=== PATIENT | male | born 1950 | race Caucasian/White ===

== ENCOUNTER 2018-09-13 00:35 | Inpatient (IN) | payer OTHER ==
[~2018-09-13] VITALS: Ht 157.5 cm; Wt 72.6 kg
[~2018-09-13 00:35] MED LIST: ACCUNEB0.63 MG/3; ACETAMINOPHEN325 M1; AKWA TEARS EYE15 ML; ASPIRIN EC81 M1 PO; BISACODYL SUPP10 MG; BISMATROL262 MG/15; CELEXA 20 MG TA20 M1 PO; CIPROFLOXACIN500 M1 PO; COLACE100 MG PO; DULCOLAX5 MG PO; GLYCOLAX POWDER17 G1 PO; HYDROCORTISONE30 G9; LOPERAMIDE 2 MG2 M1; LORTAB 5-500 T1 EAC1 PO; MIRALAX255 GM PO; PACERONE 200 M200 M1 PO; REMERON15 MG PO; ROBITUSSIN COU118 ML PO; ROBITUSSIN DM118 ML; TRAMADOL 50 MG50 MG PO; TRIAMCINOLONE 080 G3; TUCKS HEMORROID30 GM; ZOFRAN ODT4 MG PO
--- NOTE | 2018-09-13 00:59 | NUR ---
PER REPORT--PT CATATONIC AT BASELINE. PT HAS BEEN HAVING ELEVATED NA, FACILITY UNABLE TO OBTAIN LINE, SO SENT TO THIS FACILITY.
[2018-09-13 01:34] LABS: ABSOLUTE NEUTROPHILS 5.5 thou/uL (1.4-8.2); BASOPHILS 0.8 % (0.0-2.0); EOSINOPHILS 1.6 % (0.0-3.0); HEMATOCRIT 34.9 % (42.0-52.0); HEMOGLOBIN 11.3 gm/dL (14.0-18.0); LYMPHOCYTES 28.9 % (24.0-44.0); MCH 27.6 pg (26.0-34.0); MCHC 32.4 g/dL (28.0-37.0); PLATELET COUNT 398 thou/uL (150-400); POLYS 64.7 % (36.0-66.0); RBC 4.11 mil/uL (4.50-6.00); RDW 15.7 % (10.5-14.5); WBC 8.5 thou/uL (4.0-11.0)
[2018-09-13 01:42] LABS: CALCIUM 8.6 mg/dL (8.5-10.1); CREATININE 0.8 mg/dL (0.7-1.3); POTASSIUM 3.9 mmol/L (3.5-5.1)
[2018-09-13 02:32] LABS: URINE BILIRUBIN NEGATIVE (Negative); URINE BLOOD NEGATIVE (Negative); URINE CLARITY CLEAR; URINE COLOR YELLOW; URINE GLUCOSE-RANDOM* NEGATIVE (Negative); URINE KETONES TRACE (Negative); URINE LEUKOCYTES-REFLEX NEGATIVE (Negative); URINE NITRITE-REFLEX NEGATIVE (Negative); URINE PROTEIN (DIPSTICK) TRACE (Negative); URINE SPECIFIC GRAVITY 1.025 (1.005-1.035); URINE UROBILINOGEN 0.2 E.U./dl (0.2-1.0)
[2018-09-13 03:37] LABS: URINE CREATININE-RANDOM* 136.5 mg/dL
[2018-09-13 05:50] VITALS: BP 110/56
[2018-09-13 06:35] VITALS: BP 105/63
[2018-09-13 09:18] LABS: CALCIUM 8.5 mg/dL (8.5-10.1); CREATININE 0.8 mg/dL (0.7-1.3); POTASSIUM 3.5 mmol/L (3.5-5.1)
[2018-09-13] MEDS ORDERED: ELIQUIS5 MG PO (11:01)
[2018-09-13] MEDS ORDERED: LIDODERM1 EACH TRANSDERM (11:02)
[2018-09-13] MEDS ORDERED: ARTIFICIAL TEAR15 M1 OPHTHALMIC (11:02)
[2018-09-13] MEDS ORDERED: KEPPRA 500 MG500 M1 PO (11:02)
[2018-09-13] MEDS ORDERED: LOPRESSOR25 PO (11:03)
[2018-09-13] MEDS ORDERED: UNICOMPLEX M TA1 TA1 PO (11:03)
[2018-09-13] MEDS ORDERED: VITAMIN C500 M1 PO (11:04)
[2018-09-13] MEDS ORDERED: SKIN PROTECTAN113 GM TOP (11:06)
[2018-09-13 11:22] VITALS: BP 108/64
--- NOTE | 2018-09-13 13:58 | NUR ---
Discharge Planning: dp sent initial skilled referral to [facility], also contacted Rafy/admissions [facility] and let him know of referral.
[2018-09-13 16:24] VITALS: BP 107/58
--- NOTE | 2018-09-13 16:25 | NUR ---
INITIAL ASSESSMENT: KATHI reviewed chart and spoke with nursing and attending physician. Pt was admitted from [facility] due to hypernatremia. Pt receiving IV fluids. Pt with hx of MR and CP. Pt is normally w/c bound and total care. KATHI spoke with pt's sister/legal guardian, Jennifer and nephew, Mitchell, via phone. Introduced role of KATHI. Pt has been at [facility] for about two months. Pt started out as skilled and then transitioned to LTC. Plan is for pt to return to [facility] when medically stable. Pt was living in a usp until recently. personal financial planner faxed clinical info to [facility] for review. KATHI is following to assist as needed with discharge planning.
--- NOTE | 2018-09-13 18:30 | NUR ---
PATIENT ALERT AT TIMES AND AND WILL MAKE GROANING NOISE BUT DOES NOT VERBALIZE HOWEVER WILL TRACK CARE PROVIDERS WITH EYES. PATIENT WILL REACH AND GRAB BED RAIL. CONTACTED [facility] FOR ADDITIONAL RECORDS AND PATIENT DIET BUT WAS UNABLE TO MAKE CONTACT. DR ORDONEZ CONSULTED AND WOUND CARE CONSULTED. WILL CONTINUE WITH CARE PLAN.
[2018-09-13 19:46] VITALS: BP 101/54
[2018-09-14] VITALS (12 sets, daily range): BP systolic 118–153; BP diastolic 70–84
[2018-09-14 06:10] LABS: ALBUMIN 1.9 g/dL (3.4-5.0); CALCIUM 7.6 mg/dL (8.5-10.1); CREATININE 0.6 mg/dL (0.7-1.3); PHOSPHORUS 2.6 mg/dL (2.5-4.9); POTASSIUM 3.1 mmol/L (3.5-5.1)
--- NOTE | 2018-09-14 11:58 | NUR ---
KATHI reviewed chart and spoke with nursing and attending physician. Pt may need peg tube. KATHI provided physician with contact number for pt's sister/legal guardian. Awaiting input from family. KATHI is following to assist as needed with discharge planning.
--- NOTE | 2018-09-14 14:15 | NUR ---
Nutrition: pt noted to have pressure wound on coccyx, not staged yet. Pt w/ hx of CP and severe mental retardation. No wt hx per chart. Na 151, K+ 3.1, Cl 115, albumin 1.9. D5 and other meds reviewed. CIRCLE SAW OPERATOR consulted for swallow eval. Pt is non-verbal, unable to accurately assess risk at this time; failed swallow eval could put pt at mod-high nutrition risk. RD follow up on or before 09/16.
--- NOTE | 2018-09-14 20:12 | NUR ---
PATIENT ALERT AND MOANS AND FOLLOWS 1 STEP COMMANDS AND UNDERSTANDS IF SPEAKING CLEARLY AND SLOWLY PER DPOA AND SISTER. SISTER STATES PATIENT EATING POORLY PRIOR TO ADMIT AND CONCERNED ABOUT CARE AT FACILITY. ENCOURAGED SISTER TO SPEAK WITH CM AND GAVE PHONE # OF CM. PATIENT ON DIET. SIT UP IN BED AND TOTAL ASSIST TO FEED. GOOD APPETITE AND PATIENT INDICATED FULL, BY STATING, "FULL".
[2018-09-15] VITALS: BP 127/68
[2018-09-15 04:10] VITALS: BP 119/68
[2018-09-15 05:33] LABS: ALBUMIN 1.9 g/dL (3.4-5.0); CALCIUM 7.7 mg/dL (8.5-10.1); CREATININE 0.6 mg/dL (0.7-1.3); PHOSPHORUS 3.1 mg/dL (2.5-4.9); POTASSIUM 3.8 mmol/L (3.5-5.1)
--- NOTE | 2018-09-15 06:12 | NUR ---
PATIENT IS PROGRESSING IN CARE PLAN. VITAL SIGNS STABLE WITH NURSE NOT PERCEIVING ANY PAIN OR NAUSEA ON BEHALF OF PATIENT. PATIENT IS ORIENTED TO SELF AT BEST, AND IS UNABLE TO COMMUNICATE NEEDS EFFECTIVELY. WOUND CARE PROVIDED PER DOCTOR ORDER. SWALLOW PRECAUTIONS FOLLOWED. PATIENT WAS TURNED FREQUENTLY WITH SKIN CARE PROVIDED. CONTINUE PLAN OF CARE.
[2018-09-15 07:59] VITALS: BP 109/73
[2018-09-15 11:07] VITALS: BP 103/72
--- NOTE | 2018-09-15 13:17 | NUR ---
KATHI reviewed chart and spoke with attending physician. Pt's legal guardian is in agreement with peg tube placement in IR tomorrow. Plan is for pt to return to [facility] when medically stable. farm planner to fax updates to [facility] for review. KATHI is following to assist as needed with discharge planning.
--- NOTE | 2018-09-15 13:31 | NUR ---
DISCHARGE PLANNING. PATIENT IS [facility] AT [facility]. PLAN IS FOR PATIENT TO RETURN TO HIS [facility] ONCE MEDICALLY READY. PEG TUBE PLACEMENT SCHEDULED FOR TOMORROW. CLINICAL INFORMATION [facility]ED TO [facility]. CALL PLACED TO [facility] TO NOTIFY. FOLLOWING TO ASSIST WITH DISCHARGE.
[2018-09-15 15:19] VITALS: BP 104/71
[2018-09-15 19:19] VITALS: BP 101/63
--- NOTE | 2018-09-15 19:59 | NUR ---
This AM, patient was not swallowing meal, even with prompting. Speech evaluated patient and agreed that he needs alternative route of nutrition. Plan was for PEG tube placement tomorrow but the DPOA told this RN this evening when called for consent that she no longer wants the PEG tube placed as she has changed her mind. The DPOA said she wants to come up tomorrow for breakfast and try to feed patient herself. DPOA made aware of why PEG tube procedure was important. DPOA also made aware that patient may remain NPO for aspiration risk and may not have a food tray tomorrow depending on doctor orders, DPOA said she understands. Not much progress toward plan of care at this time as patient isn't recieving adequate nutrition.
--- NOTE | 2018-09-15 21:00 | NUR ---
Patient awake, makes incomprehensible sounds. Attempted to give meds, pocketing applesauce. Kept NPO.
[2018-09-16 03:03] VITALS: BP 104/53
--- NOTE | 2018-09-16 04:17 | NUR ---
Patient not making progress towards outcome goals. Vital signs and rhythm stable. Kept NPO for risk of aspiration. IVFluids infusing. Good urine output. DPOA declining Peg placement at this time.
[2018-09-16 07:18] LABS: ALBUMIN 1.8 g/dL (3.4-5.0); CALCIUM 8.4 mg/dL (8.5-10.1); CREATININE 0.6 mg/dL (0.7-1.3); PHOSPHORUS 3.3 mg/dL (2.5-4.9); POTASSIUM 3.6 mmol/L (3.5-5.1)
[2018-09-16 08:14] VITALS: BP 106/68
--- NOTE | 2018-09-16 10:14 | NUR ---
WOUND CARE FOLLOW UP; ROUNDING WITH DR HAI HERNANDEZ AND MICHAEL GRAB JACK MAN. THE PATIENT IS SOUND ASLEEP DURING ASSESSMENT. FAMILY PRESENT TO GET ADDITIONAL INFORMATION. THE WOUNDS ARE STABLE AT THIS TIME AND BEING OFFLOADED APPROPRIATLY. CONTINUE CURRENT POC DISCUSSED WITH NATASHA
--- NOTE | 2018-09-16 10:31 | NUR ---
RN TALK TO PATIENT'S SISTER (DPOA) ANJELICA IN ROOM THAT SHE DOES NOT WANT PATIENT HAS PEG TUBE DUE TO PATIENT ABLE TO EAT AND IT IS PAINFUL TO HAVE PEG TUBE. INFO AND EDUCATION GIVEN AGIAN TO SISTER. SHE LIKES TALK TO PHYSICIAN.
--- NOTE | 2018-09-16 10:41 | NUR ---
Awaiting final decision for possible PEG
--- NOTE | 2018-09-16 10:50 | NUR ---
If decision to start tube feeding over the weekend, recommend jevity 1.5 to reach goal of 65ml/hr
--- NOTE | 2018-09-16 11:46 | NUR ---
SW reviewed chart and spoke with nursing and attending physician. Pt's sister changed her mind about the peg tube and is now agreeable with having peg tube placed. No weekend discharge planned, as pt will need to be started on tube feeding and tolerate it prior to discharge. Plan is for pt to rerturn to [facility] when medically stable. KATHI is following to assist as needed with discharge planning.
[2018-09-16 11:54] VITALS: BP 91/58
--- NOTE | 2018-09-16 12:03 | HC ---
[facility] [place] [address] CONSULTATION Name: KELLIE KU Room #: 359-P ADM IN M.R.#: [id number] Admission: 09/13/18 ������������������ Attend Phys: Vin Mancuso MD Discharge: ������������������ Date of : 48 Report #: [id number] THIS REPORT FOR: //name// CC: Cliff Mancuso DATE OF SERVICE: 09/13/2018 REASON FOR CONSULTATION: Dehydration. HISTORY OF PRESENT ILLNESS: This is a 68-year-old patient with cerebral palsy, mental retardation, has become less responsive, has stopped eating and drinking and presents with a serum sodium of 165. PAST MEDICAL HISTORY: Hypertension. He has atrial arrhythmias and a pacemaker, anemia and depression. Past history as listed include some mental retardation, which is severe. Cerebral palsy, prior history of C. diff and sepsis. He has had prior history of AFib with RVR. He has had previous colon surgery with partial colectomy. He reportedly has a pacemaker. MEDICATIONS: As listed from the facility include amiodarone 200 mg daily, aspirin 81 mg daily, Colace, Remeron 15 mg at bedtime, Celexa 20 mg daily, and hydrocodone p.r.n. REVIEW OF SYSTEMS: Cannot be taken. SOCIAL HISTORY: Lives at facility. PHYSICAL EXAMINATION: GENERAL: Very lethargic gentleman without a lot of responsiveness. SKIN: Shows slightly poor turgor. SKELETAL: Shows him to be in a position in bed. HEENT: Extraocular movements cannot be tested. No scleral icterus. Hearing and vision cannot be adequately tested. Mucous membranes are dry. NECK: Veins are flat. CHEST: Clear with shallow respirations. HEART: Distant, but regular. ABDOMEN: Soft and nontender. EXTREMITIES: Show no edema. NEUROLOGIC: He really is not following any commands. He does show a little bit of attentiveness to voice command. LABORATORY DATA: Sodium 165, potassium 3.5, chloride 128, bicarbonate 30, BUN 27, creatinine 0.8. ASSESSMENT: [facility] [address] [place] [address] CONSULTATION Name: KELLIE KU Room #: 359-P [facility] IN ..#: [id number] Admission: 09/13/18 ������������������ Attend Phys: Vin Mancuso MD Discharge: ������������������ Date of : 48 Report #: [id number] 1. Hypernatremia. He is severely dehydrated, currently not eating or drinking. IV free water will be given once we get his numbers better. I suspect, maybe, he will brighten up and be able to take p.o. again. 2. Cerebral palsy. 3. Mental retardation. 4. History of atrial arrhythmias. ��������������������������������������������� <ELECTRONICALLY SIGNED> ���������������������������������������� By: Wilfred Morfin MD ��������������������������������������������� 09/16/18 1203 [id number] [id number] Wilfred Morfin MD /nt
[2018-09-16 16:41] VITALS: BP 100/70
[2018-09-16 20:01] VITALS: BP 107/72
--- NOTE | 2018-09-16 22:13 | NUR ---
PROVIDER SERA AWARE OF THE NEED TO CHANGE MEDICATIONS TO IV DUE TO PATIENT BEING NPO. MOHAN.
[2018-09-17 04:25] VITALS: BP 111/69
[2018-09-17 05:43] LABS: ALBUMIN 1.8 g/dL (3.4-5.0); CALCIUM 8.1 mg/dL (8.5-10.1); CREATININE 0.6 mg/dL (0.7-1.3); PHOSPHORUS 3.1 mg/dL (2.5-4.9); POTASSIUM 3.1 mmol/L (3.5-5.1)
--- NOTE | 2018-09-17 05:46 | NUR ---
PAITNET IS AWAKE. PATIENT IS NONVERBAL OCCATIONALLY ANSWERS "YES" "NO" QUESTIONS. PATIENT SI Q2TURN. PATIENT WAS BATHED THIS SHIFT. PATIENT IS ON ROOM AIR. PATIENTS LBM WAS THE . PATIENTS DRESSINGS ARE CLEAN DRY AND INTACT. PATIENT HAS A GOLD. PATIENT IS SR WITH 1ST DEGREE ON TELE. PATIENT IS Q6H ACCUCHECK. PATIENT IS NPO. PATIENT LIVES AT [facility]. PATIENT IS PENDING POSSIBLE PEG TUBE ON WEDNESDAY. PATIENT RESTING COFMORTABLY IN BED. WCM. PATIENT IS NOT PROGRESSING TO GOALS.
[2018-09-17 07:30] VITALS: BP 100/62
--- NOTE | 2018-09-17 08:44 | NUR ---
PATIENT ALERT. SISTER BRAD IS IN PATIENT ROOM THAT BOUGHT FOOD FROM OUTSIDE FEEDING PATIENT. RN EXPLAIN TO HER PATIENT IS NPO ONLY SPEECH THERPIST ABLE TO FEEDING PATIENT CORRECTIONS IDENTIFICATION TECHNICIAN. SISITER AND OTHER STILL CONTINUE FEEDING PATIENT WITH THIN LIQUID. EDUCATION GIVEN TO SISITER AND OTHER FAMILY. ALSO PHYSICIAN NOIFIED.
[2018-09-17 11:18] VITALS: BP 107/65
[2018-09-17 16:27] VITALS: BP 111/66
[2018-09-17 19:40] VITALS: BP 109/74
--- NOTE | 2018-09-18 02:55 | NUR ---
PATIENT IS ALERT TO SELF, PATIENT IS CONFUSED. PATIENT WILL ANSWER "YES" "NO" QUESTIONS AND MAKE SMALL NEEDS KNOWN. PATIENT IS ON ROOM AIR. PENDING PEG TUBE PLACEMENT ON WEDNESDAY IN THE MEAN TIME NPO FOR ASPIRATION. PATEINT RECEIVING PPN FOR NUTRITION. DRESSINGS CHANGED, CLEAN, DRY AND INTACT. PATIENT IS Q2 TURN. PATIENT IS NSR ON TELE OCCATIONALLY V PACED, HAS A PACEMAKER. PATIENT IS Q6H ACCUCHECK DUE TO NPO STATUS. PATIENTS LBM WAS THE 29TH. PATIENT DENIES PAIN. PATIENT IS RESTING IN BED. WCM. PATIENT IS PROGRESSING TO GOALS.
[2018-09-18 04:00] VITALS: BP 103/61
[2018-09-18 06:04] LABS: CALCIUM 8.6 mg/dL (8.5-10.1); CREATININE 0.5 mg/dL (0.7-1.3); POTASSIUM 3.7 mmol/L (3.5-5.1)
[2018-09-18 07:13] VITALS: BP 120/78
[2018-09-18 11:28] VITALS: BP 109/65
--- NOTE | 2018-09-18 14:55 | NUR ---
pt's assessment has done, pt opens his eyes and he can follow some commands, pt is NPO and pt is continuing PPN @60ml/hr, pt is turn q2hr with assist, pt's VS are stable at this time, pt's wound care has done, pt is tolerative with wound care, pt will have PEG tube placement 09/19/18.
[2018-09-18 16:11] VITALS: BP 125/85
[2018-09-18 20:00] VITALS: BP 103/65
[2018-09-19 03:25] VITALS: BP 122/75
--- NOTE | 2018-09-19 03:51 | NUR ---
ASSUMED PT CARE AROUND 1900. MOSTLY NONVERBAL. NODS HEAD YES/NO TO QUESTIONS. PT SLEPT MOST OF THE NIGHT. Q2H TURN TO PREVENT FURTHER SKIN BREAKDOWN. REMAINS NPO. ORAL CARE PROVIDED. PPN INFUSING VIA IV. VSS. AFEBRILE. GOLD TO DD WITH GOOD URINE OUTPUT. FALL PRECAUTIONS IN PLACE. NOT PROGRESSING WELL TOWARD POC GOALS. WILL CONTINUE TO MONITOR FURTHER.
[2018-09-19 07:00] VITALS: BP 134/81
[2018-09-19 08:51] LABS: INR 1.1; PROTIME 11.4 Seconds (9.3-11.4)
[2018-09-19 11:32] VITALS: BP 124/81
--- NOTE | 2018-09-19 13:27 | NUR ---
WOUND CARE FOLLOW UP; ROUNDING WITH DR HAI CHRISTOPHER AND MICHAEL SCRAP CRANE OPERATOR. THE WOUNDS ARE UNCHANGED FROM PRIOR ASSESSMENT. PLAN; CONTINUEBOARDERED FOAM TO SACRUM AND BETADINE, ABD, KERLIX TO HEEL WOUND. DISCUSSED WITH NATASHA
--- NOTE | 2018-09-19 13:36 | HC ---
[facility] [place] [address] [place] [address] CONSULTATION Name: KELLIE KU Room #: 359-P ADM IN M.R.#: [id number] Admission: 09/13/18 ������������������ Attend Phys: Vin Mancuso MD Discharge: ������������������ Date of : 48 Report #: [id number] THIS REPORT FOR: //name// CC: Cliff Mancuso DATE OF SERVICE: 09/14/2018 WOUND CARE CONSULTATION PERSONAL PHYSICIAN: Vin Mancuso MD CHIEF COMPLAINT: Multiple decubitus ulcers. HISTORY OF PRESENT ILLNESS: This is a 68-year-old white male with history of severe mental retardation, cerebral palsy who currently resides in his long-term care facility, who came in the Emergency Department for a severely elevated sodium level. The patient was admitted because of the elevated sodium. Upon admission, the patient was found to have a stage 4 decubitus ulcer in the sacrococcygeal region as well as a deep tissue injury on his right heel as well as a stage 3 decubitus ulcer to the right buttock. The patient himself is nonverbal due to the cerebral palsy and severe mental retardation. The patient is unable to give any history whatsoever. There is no family at the bedside at this time. All information was obtained from the chart. It appears the patient is a long-term resident at this facility. He is unsure how long these ulcerations have been present. PAST MEDICAL HISTORY: Significant for severe mental retardation, gastroesophageal reflux disease, gout, depression, hypertension, cerebral palsy, AFib with rapid ventricular response. CURRENT MEDICATIONS: Multiple, I reviewed the patient's medication list. DRUG ALLERGIES: TUBERCULIN PPD. SOCIAL HISTORY: The patient resides in a care facility. FAMILY HISTORY: Not pertinent to current medical condition. REVIEW OF SYSTEMS: Unobtainable because of the patient's nonverbal state. PHYSICAL EXAMINATION: VITAL SIGNS: Temp 36.9, pulse 77, respirations 15, BP 106/68. GENERAL: This is awake, but not alert or oriented white male who appears chronically ill. HEENT: Normocephalic, atraumatic. Mucous membranes are dry. Pupils are round. [facility] [address] [place] [address] CONSULTATION Name: KUKELLIE FADI Room #: 359-P [facility] IN M.R.#: [id number] Admission: 09/13/18 ������������������ Attend Phys: Vin Mancuso MD Discharge: ������������������ Date of : 48 Report #: [id number] Sclerae are white. NECK: Supple, nontender, without JVD. LUNGS: Clear. HEART: Irregularly irregular. ABDOMEN: Soft, nontender. EXTREMITIES: The patient appears to have spontaneous movement, but it is limited. On the right heel is an intact hemorrhagic blister consistent with a deep tissue injury, which is boggy, but with no drainage. Rest of the foot and toes are without open ulcerations. The left heel is intact. Rest of the foot and toes are intact. Evaluation of sacrococcygeal region reveals a stage 4 decubitus ulcer, which is a mixture of approximately 80% slough and 20% pale pink granulation tissue. There is a moderate odor noted with serosanguineous drainage, but no actual purulence. There is no evidence of any exposed bony spicules. Periwound is mildly macerated, but otherwise intact, but no significant undermining or tunneling. Evaluation of the right buttock area reveals a clean, granulating stage 3 decubitus ulcer with serosanguineous drainage without odor. There is no undermining or tunneling. Periwound is mildly macerated. NEUROLOGIC: Cranial nerves 2 through 12 are grossly intact. The patient has fairly severe mental retardation. LABORATORY DATA: White count 8.5, hemoglobin 11.3. Albumin is 1.8. WOUND CARE COURSE: At this time, we will plan on ordering a CT scan with contrast to evaluate for possible underlying osteomyelitis as well as to make sure we have the patient in a low air loss mattress and turned every 2 hours. We will put heel protectors on at all times. We will make sure we maximize the patient's nutritional status through his PEG tube. We will start Dakin's wet to dry dressings until the coccyx changed daily and p.r.n. We will use a bordered foam to the right buttock, had this changed daily and p.r.n. On the right medial heel, we will use Betadine, ABD, Kerlix, tape and change daily and p.r.n. We can consult Occupational and Physical Therapy to see if they can possibly help at all; however, I am not sure if the patient is going to be able to participate in this. IMPRESSION: 1. Stage 4 sacrococcygeal decubitus ulcer present on admission. 2. Stage 3 decubitus ulcer to the right buttock present on admission. 3. Deep tissue into the right medial heel. 4. Severe mental retardation. 5. Cerebral palsy. 6. History of atrial fibrillation. 7. Hypertension. 8. Congestive heart failure. 9. Neuropathy. 10. Severe protein-calorie malnutrition with an albumin of 1.9. [address] [address] CONSULTATION Name: KELLIE KU Room #: 359-P ADM IN M.R.#: [id number] Admission: 09/13/18 ������������������ Attend Phys: Vin Mancuso MD Discharge: ������������������ Date of : 48 Report #: [id number] 11. Severe debility. PLAN: Described as above. We appreciate the ability to consult. ��������������������������������������������� <ELECTRONICALLY SIGNED> ���������������������������������������� By: Kimani Potter MD ��������������������������������������������� 09/19/18 1336 [id number] [id number] Kimani Potter MD /nt
--- NOTE | 2018-09-19 14:26 | NUR ---
Nutrition: When able to use PEG tube, REC jevity 1.5 to reach 65 mL/hr. When IVFS D/C, will need 200 mL H20 q 6 hrs flushes.
[2018-09-19 15:13] VITALS: BP 115/76
--- NOTE | 2018-09-19 15:43 | NUR ---
KATHI reviewed chart and spoke with nursing and attending physician. Pt to have peg tube placed today in IR. Plan is for pt to return to [facility] when medically stable. neighborhood planner to fax updates to [facility] for review. KATHI is following to assist as needed with discharge planning.
--- NOTE | 2018-09-19 16:51 | NUR ---
PT AWAKE BUT NONE VERBAL. VSS, 98%RA, SR ON TELE. PPN INFUSING PER ORDER. GOLD TO DD. WOUND CARE DONE. PT TURNED FREQUENTLY THIS SHIFT. PT FAMILY AT BEDSIDE THIS MORNING. WILL CONTINUE TO MONITOR.
[2018-09-19 19:51] VITALS: BP 105/61
--- NOTE | 2018-09-20 03:23 | NUR ---
ASSUMED PT CARE AROUND 1900. PT IS MOSTLY NONVERBAL, NODS HEAD YES/NO AND IS ABLE TO TRACK WITH HIS EYES. NO PAIN NOTED. PT SLEPT MOST OF THE NIGHT. RESP EVEN AND UNLABORED. REPOSITIONED FREQUENTLY TO PREVENT FURTHER SKIN BREAKDOWN. COCCYX DRESSING CHANGED PER ORDER. COMPLETE BED BATH GIVEN. ORAL CARE PROVIDED. PT NOW A DNR PER ORDER FROM DR MTZ. PPN D/C'D PER ORDER. ALLA TO UDAY. NOT PROGRESSING WELL TOWARD POC GOALS. WILL CONTINUE TO MONITOR CLOSELY.
[2018-09-20 03:58] VITALS: BP 137/88
[2018-09-20 07:24] VITALS: BP 103/65
--- NOTE | 2018-09-20 15:25 | NUR ---
DISCHARGE NOTE: KATHI reviewed chart and spoke with nursing and attending physician. Attending physician spoke with pt's sister/legal guardian yesterday. Peg tube will not be placed. Pt's sister has decided to initiate comfort care/hospice and for pt to return to [facility] with hospice. Pt is a DNR. Pt is stable for discharge today. KATHI spoke with pt's sister/guardian via phone to discuss discharge plan. Jennifer is aware and agreeable with discharge plan. Hospice agencies discussed. No preference voiced. Pt to return to [place] and have hospice initiated there. Awaiting final discharge orders at this time. KATHI arranged ambulance transportation for 1730 via [facility]. Pt's sister is aware of transportation time. Chart copy requested. Nursing to call report. KATHI updated [place] post-acute liaison of transportation time. KATHI is following to finalize discharge.
[2018-09-20] MEDS ORDERED: LORAZEPAM I2 MG/1 M2 SUBLING (15:32)
[2018-09-20] MEDS ORDERED: ACCUNEB SO1.25 MG/1 INH (15:32)
[2018-09-20] MEDS ORDERED: MSL20MG/ML SUBLING (15:32)
--- NOTE | 2018-09-20 17:52 | NUR ---
Patient discharged with ambulance drivers back to [facility]. Plan is for hospice. Patient left unit at 1750 on room air. IV and telemetry discontinued today. Discharge packet and new prescriptions given to EMS drivers. All patient belongings sent with patient. Report given to facility. Daily dressing changes on wounds completed this AM. 250 ml out of Krueger cath. IM Glucagon administered this afternoon for blood sugar of 63. Blood sugar came back up to 93. Dr. Amaya notified then blood sugar checks dc'd.
== END 2018-09-20 18:03 | DRG 640 ==
LOC: ER 00:35 → 3W 03:45 → EROBS 03:45 → 3W 06:36
PROVIDERS: Emergency Medicine; Internal Medicine; Internal Medicine Nephrology; Radiology Vascular & Interventional Radiology; ADMIT Hospitalist
DX: E86.0 Dehydration (principal); L89.154 Pressure ulcer of sacral region, stage 4; E43 Unspecified severe protein-calorie malnutrition; L89.313 Pressure ulcer of right buttock, stage 3; G93.40 Encephalopathy, unspecified; E87.0 Hyperosmolality and hypernatremia; K21.9 Gastro-esophageal reflux disease without esophagitis; M10.9 Gout, unspecified; F41.9 Anxiety disorder, unspecified; F32.9 Major depressive disorder, single episode, unspecified; E78.5 Hyperlipidemia, unspecified; M19.90 Unspecified osteoarthritis, unspecified site; K58.9 Irritable bowel syndrome, unspecified; I11.0 Hypertensive heart disease with heart failure; G80.9 Cerebral palsy, unspecified; F79 Unspecified intellectual disabilities; R53.81 Other malaise; E87.6 Hypokalemia; G40.909 Epilepsy, unspecified, not intractable, without status epilepticus; E87.1 Hypo-osmolality and hyponatremia; R13.10 Dysphagia, unspecified; I48.2 Chronic atrial fibrillation; I73.00 Raynaud's syndrome without gangrene; G62.9 Polyneuropathy, unspecified; Z86.14 Personal history of Methicillin resistant Staphylococcus aureus infection; Z79.1 Long term (current) use of non-steroidal anti-inflammatories (NSAID); Z79.82 Long term (current) use of aspirin; Z79.899 Other long term (current) drug therapy; Z95.0 Presence of cardiac pacemaker; Z88.8 Allergy status to other drugs, medicaments and biological substances; Z91.048 Other nonmedicinal substance allergy status; Z68.29 Body mass index [BMI] 29.0-29.9, adult
CPT/HCPCS: 10879